=== PATIENT | female | born 1945 ===

== ENCOUNTER 2019-05-31 08:00 | Inpatient (IN) | payer OTHER ==
[~2019-05-31] VITALS: Ht 157.5 cm; Wt 98.0 kg
[2019-05-31] MEDS ORDERED: GLIMEPIRIDE4 MG (11:44)
[2019-05-31] MEDS ORDERED: OMEPRAZOLE-BIC1 EAC1 PO (11:44)
[2019-05-31] MEDS ORDERED: SYNTHROID50 MCG PO (11:44)
[2019-05-31] MEDS ORDERED: GALANTAMINE HBR8 MG PO (11:45)
[2019-05-31] MEDS ORDERED: IRBESARTAN-HCT1 EAC1 PO (11:45)
[2019-05-31] MEDS ORDERED: WELLBUTRIN SR150 MG PO (11:46)
[2019-05-31] MEDS ORDERED: TOPROL XL50 M1 PO (11:46)
[2019-05-31] MEDS ORDERED: JANUVIA100 MG PO (11:46)
[2019-05-31] MEDS ORDERED: SIMVASTATIN5 MG PO (11:47)
[2019-05-31] MEDS ORDERED: PEPCID AC20 MG PO ×2 (11:47→11:48)
[2019-05-31] MEDS ORDERED: CARDURA XL4 MG PO (11:47)
[2019-05-31] MEDS ORDERED: XARELTO20 MG PO (11:48)
[2019-06-09] MEDS ORDERED: PERCOCET 5-3251 EACH PO (11:49)
[2019-06-09] MEDS ORDERED: ELIQUIS2.5 MG PO (11:49)
[2019-06-09] MEDS ORDERED: DUI500 PO (11:49)
== END 2019-06-09 17:02 | DRG 470 ==
LOC: O/R 08:00 → SURH 06-07 06:00
PROVIDERS: ADMIT Orthopaedic Surgery
PROC: 0MNP0ZZ Release Left Knee Bursa and Ligament, Open Approach (ICD-10-PCS; 2019-06-07)
PROC: 0SRD0J9 Replacement of Left Knee Joint with Synthetic Substitute, Cemented, Open Approach (ICD-10-PCS; principal; 2019-06-07 09:45)
DX: M17.12 Unilateral primary osteoarthritis, left knee (principal); D62 Acute posthemorrhagic anemia; M22.12 Recurrent subluxation of patella, left knee; M81.0 Age-related osteoporosis without current pathological fracture; I11.9 Hypertensive heart disease without heart failure; E11.9 Type 2 diabetes mellitus without complications; I48.0 Paroxysmal atrial fibrillation; Z96.652 Presence of left artificial knee joint